=== PATIENT | female | born 1955 | race Caucasian/White ===

== ENCOUNTER → 2017-06-15 | Outpatient (CLI) | payer OTHER ==
[~2017-06-15] MED LIST: ADVAIR 250/5028 PUFF IN; ASPIRIN CHILDRE81 M1 PO; BREO ELLIPTA1 POW IH; CIPRO 250MG TA250 MG PO; CRESTOR5 MG PO; JANUVIA50 MG PO; LEVAQUIN500 MG PO; PREMARIN 0.3MG0.3 MG PO; PROGESTERONE WE1 PO3 PO; PROTONIX40 MG PO; SINGULAIR10 MG PO; ZANTAC 150150 MG PO
[2017-06-15 08:57] LABS: BUN 12 mg/dL (7-18)
[2017-06-15 08:59] LABS: GFR (ESTIMATED) 72 ML/MIN (59-)
== END ==
LOC: LAB 06:58
PROVIDERS: Internal Medicine Adolescent Medicine
DX: E78.5 Hyperlipidemia, unspecified (principal); E11.9 Type 2 diabetes mellitus without complications; Z00.00 Encounter for general adult medical examination without abnormal findings